=== PATIENT | female | born 1985 | race Caucasian/White ===

== ENCOUNTER → 2019-09-30 | Outpatient (CLI) | payer BC ==
[~2019-09-30] MED LIST: ACET325 PO; CALCAVITD PO; IBUP800 PO; OXYACE5T PO; PAMPRIN; PANT20 PO
== END | disposition home or self-care (01) ==
DX: L70.8 Other acne (principal); D48.5 Neoplasm of uncertain behavior of skin; L53.8 Other specified erythematous conditions; L82.1 Other seborrheic keratosis; D22.5 Melanocytic nevi of trunk; D22.71 Melanocytic nevi of right lower limb, including hip; D22.72 Melanocytic nevi of left lower limb, including hip